=== PATIENT | male | born 1955 | race Caucasian/White ===

== ENCOUNTER → 2023-10-17 08:09 | Outpatient (CLI) | payer MEDICARE, SELFPAY ==
--- NOTE | 2023-10-17 08:12 | DI.US.S_ITS ---
PROCEDURE: US CAROTID DOPPLER BI INDICATIONS: HYPERLIPIDEMIA NICOTINE DEPENDENCE/AAA SCREENING TECHNIQUE: Color and pulse Doppler interrogation was performed of both carotid systems, with image documentation and velocity measurements. COMPARISON: None. FINDINGS: Stenosis calculations are based on SRU (Society of Radiologists in Ultrasound) criteria. Right side: Brachial blood pressure: 133/81 mm Hg. Common carotid artery peak systolic velocity: 99 cm/sec. Internal carotid artery peak systolic velocity: 71 cm/sec. Internal carotid artery end diastolic velocity: 26 cm/sec. External carotid artery peak systolic velocity: 118 cm/sec. ICA/CCA peak systolic ratio: 0.7 . Hector scale imaging description: Mild plaque Percent internal carotid artery stenosis: Less than 50% . Vertebral artery: Flow direction is antegrade. Left side: Brachial blood pressure: 136/82 mm Hg. Common carotid artery peak systolic velocity: 85 cm/sec. Internal carotid artery peak systolic velocity: 110 cm/sec. Internal carotid artery end diastolic velocity: 46 cm/sec. External carotid artery peak systolic velocity: 100 cm/sec. ICA/CCA peak systolic ratio: 1.3 . Hector scale imaging description: Mild to moderate plaque Percent internal carotid artery stenosis: Less than 50% . Vertebral artery: Flow direction is antegrade. IMPRESSION: Less than 50% stenosis within the internal carotid arteries bilaterally. Dictated by: Michelle Ayala M.D. on 10/17/2023 at 11:46 Approved by: Michelle Ayala M.D. on 10/17/2023 at 11:47
--- NOTE | 2023-10-17 08:12 | DI.US.S_ITS ---
PROCEDURE: US ABD AORTA ANEURYSM SCREEN INDICATIONS: HYPERLIPIDEMIA NICOTINE DEPENDENCE/AAA SCREENING TECHNIQUE: Real-time scanning was performed of the aorta and proximal common iliac arteries, with image documentation. COMPARISON: None. FINDINGS: Aorta: Abdominal aorta is normal in caliber throughout its length. Iliacs: Proximal common iliac arteries are normal in caliber. IMPRESSION: Negative for abdominal aortic aneurysm. Approved by: Mai Rodriguez M.D.,Ph.D. on 10/17/2023 at 9:38
== END ==
LOC: US 08:11
PROVIDERS: PCP Student in an Organized Health Care Education/Training Program; Referring Provider Student in an Organized Health Care Education/Training Program; Visit Provider Student in an Organized Health Care Education/Training Program
DX: I65.23 Occlusion and stenosis of bilateral carotid arteries (principal); E78.2 Mixed hyperlipidemia; Z13.6 Encounter for screening for cardiovascular disorders; F17.210 Nicotine dependence, cigarettes, uncomplicated
CPT/HCPCS: 76706; 93880

== ENCOUNTER → 2024-10-24 15:42 | Outpatient (CLI) | payer MEDICARE, SELFPAY ==
--- NOTE | 2024-10-24 15:44 | DI.MRI.S_ITS ---
PROCEDURE: MR HAND RT WO CON INDICATIONS: r/o collateral ligament injury middle finger TECHNIQUE: Noncontrast coronal T1 spin echo and T2 fast spin echo with fat saturation, axial proton density fast spin echo and T2 fast spin echo with fat saturation, sagittal T1 spin echo and STIR through the hand and fingers. COMPARISON: None. FINDINGS: Image quality: Excellent. Bones: Mild degenerative changes of 1st interphalangeal joint with mild subchondral cystic changes in the 1st proximal phalangeal head. Moderate degenerative changes of the 3rd metacarpal phalangeal joint with subchondral cystic changes, and mild marrow edema in the 3rd metacarpal head. Small effusion within the 3rd metacarpal phalangeal joint. Moderate subchondral cystic changes versus erosion in the distal ulna. Mild marrow edema about the capitate and lunate articulation, favoring degenerative as well. Interphalangeal joint(s): The accessory and proper collateral ligaments appear intact. The volar plate demonstrates normal morphology. The extensor central slips appear intact on sagittal images. Metacarpophalangeal joint(s): At the 3rd metacarpal phalangeal joint, the ulnar collateral ligament is irregular and redundant, likely secondary to partial thickness tear. Extensor apparatus: Trace tenosynovitis of the 2nd extensor compartment, at the level of the proximal carpal row. Trace tenosynovitis of the extensor carpi ulnaris within the ulnar groove. Flexor apparatus: The flexor digitorum superficialis and profundus tendons both appear intact. All annular and cruciform pulleys appear intact, without adjacent soft tissue edema. Soft tissues: Full-thickness tear of the central disc of the triangular fibrocartilage. IMPRESSION: 1. Moderate degenerative changes of the 3rd metacarpal phalangeal joint with partial thickness tear of the ulnar collateral ligament. 2. Additional mild degenerative changes of the hand and wrist as described above. 3. Moderate subchondral cystic changes versus erosion in the distal ulna. Recommend clinical correlation for rheumatoid arthritis. 4. Full-thickness tear of the central disc of the triangular fibrocartilage, incompletely evaluated. Dictated by: Lyn Alba M.D. on 10/27/2024 at 9:54 Approved by: Lyn Alba M.D. on 10/27/2024 at 10:03
== END ==
LOC: MRI 15:43
PROVIDERS: PCP Nurse Practitioner Family; Referring Provider Orthopaedic Surgery; Visit Provider Orthopaedic Surgery
DX: S63.591A Other specified sprain of right wrist, initial encounter (principal); M79.641 Pain in right hand
CPT/HCPCS: 73218

== ENCOUNTER 2024-11-27 10:20 | Day surgery (SDC) | payer MEDICARE, SELFPAY ==
--- NOTE | 2024-11-27 | PATH_ITS ---
[facility] Accession Number: [id number] No. of containers..02 Tissue . 01 Material submitted: . PART A: colon - SIGMOID POLYP PART B: rectum - RECTAL POLYP X 2 . 01 Diagnosis: A. SIGMOID COLON POLYP: Colonic mucosa with focal mucosal hyperplasia. Negative for dysplasia or malignancy. . B. RECTAL POLYPS: Tubular adenoma and hyperplastic polyps (two polyps removed). MRV 12/05/2024 1538 Local . 01 Electronically signed: . Rosalio Salmeron MD, PhD, Pathologist NPI- [id number] . 01 Gross description: . A. Received in formalin with two identifiers and sigmoid polyp, is a single williamson-brown soft tissue fragment, 0.8 cm in greatest dimension, submitted entirely in A1. B. Received in formalin with two identifiers and rectal polyps x2, are three williamson soft tissue fragments, 0.4 to 0.5 cm in greatest dimension, submitted entirely in B1. ([id number]) /MRV 12/04/2024 1816 Local . 01 Pathologist provided ICD-10: D12.8 . 01 CPT . 473014, 117203 Specimen Comment: A courtesy copy of this report has been sent to [phone] Performed at: [address] [facility] [address], [place], [place] [id number] MD Vitaly Hernandez MD Phone: [phone]
[2024-11-27 10:54] VITALS: BP 151/89; PULSE 83; RESP 16; TEMP 36.2; O2SAT 100
--- NOTE | 2024-11-27 11:00 | PM.HP.IH.1 ---
History of Present Illness History of Present Illness Date Patient Seen: 11/27/24 Time Patient Seen: 11:00 Chief complaint: Dx Colonoscopy w/poss bx Narrative: Richi is a 69-year-old man had a positive fecal immunochemical test recently. He has never had a colonoscopy before. No family history of colon cancer. [facility] Social History (Updated 10/17/24 @ 14:45 by Doretha Hernandez MA) marital status: household members: spouse Meds Home Medications and Allergies Home Medications ?Medication ?Instructions ?Recorded ?Confirmed ?Type rosuvastatin 20 mg tablet 20 mg PO DAILY 10/17/24 11/27/24 History sodium,potassium,mag sulfates 17.5 See Rx Instructions PO .COMPLEX 10/30/24 Rx gram-3.13 gram-1.6 gram oral soln #354 mL (Suprep Bowel Prep Kit) Allergies Allergy/AdvReac Type Severity Reaction Status Date / Time No Known Drug Allergies Allergy Verified 11/27/24 10:50 Exam Const General: healthy appearing Assessment & Plan Assessment and plan (1) Positive FIT (fecal immunochemical test): Status: Acute Plan Colonoscopy Time-Based Coding :: [TOTAL MINUTES] spent with patient and on the chart (including review of chart, obtaining history, exam, reviewing outside data, placing orders, documenting exam and treatment plan, and counseling patient) on [DATE]. 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
[2024-11-27] MEDS: LACTATED RINGERS 1,000 ML 42 ML IV (11:08)
--- NOTE | 2024-11-27 12:01 | PM.HP.IH.1 ---
History of Present Illness History of Present Illness Chief complaint: Dx Colonoscopy w/poss bx Narrative: Richi is a 69-year-old man had a positive fecal immunochemical test recently. He has never had a colonoscopy before. No family history of colon cancer. [facility], [facility] Social History (Updated 10/17/24 @ 14:45 by Doretha Hernandez MA) marital status: household members: spouse Meds Home Medications and Allergies Home Medications ?Medication ?Instructions ?Recorded ?Confirmed ?Type rosuvastatin 20 mg tablet 20 mg PO DAILY 10/17/24 11/27/24 History sodium,potassium,mag sulfates 17.5 See Rx Instructions PO .COMPLEX 10/30/24 Rx gram-3.13 gram-1.6 gram oral soln #354 mL (Suprep Bowel Prep Kit) Allergies Allergy/AdvReac Type Severity Reaction Status Date / Time No Known Drug Allergies Allergy Verified 11/27/24 10:50 Exam Vital Signs (past 8 hours): - 11/27/24 10:54 Temperature 97.2 F L Pulse Rate 83 Respiratory Rate 16 Blood Pressure 151/89 H Pulse Oximetry 100 Oxygen Delivery Method Room Air Oxygen Delivery Method Room Air Assessment & Plan Time-Based Coding :: [TOTAL MINUTES] spent with patient and on the chart (including review of chart, obtaining history, exam, reviewing outside data, placing orders, documenting exam and treatment plan, and counseling patient) on [DATE]. 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
--- NOTE | 2024-11-27 12:01 | PM.OP.COLON ---
Operative Date/Time/Diagnoses Date of procedure: 11/27/24 Time of procedure: 12:02 Pre-op diagnosis: Positive fit test Post-op diagnosis: same Procedure & Clinicians Study performed: Colonoscopy Same procedure(s) as scheduled: Yes Surgeon: Brad Lai Anesthesia Type: MAC +/- Procedure Notes Procedure in detail: Surgeon: Brad Lai MD Anesthesia: Cehrelle Rajput CRNA Procedure: The patient was brought to the endoscopy suite, placed in left lateral decubitus position. The patient was connected to monitoring devices. A time-out was performed. Sedation was administered. Once the patient was adequately sedated, a digital rectal exam was performed and was normal. The scope was then inserted and advanced to the cecum where the appendiceal orifice was identified and photographed. The scope was then slowly withdrawn over greater than 6 minutes. The mucosa was thoroughly inspected. There was a 5 mm polyp in the sigmoid colon removed with a cold snare. There were two 5 mm polyps in the rectum removed with a cold snare and sent together. The scope was retroflexed in the rectum. No other abnormalities were found. The scope was straightened and removed. The patient was awakened and brought to recovery. Scope withdrawal time: 9 minutes Sedation time: 14 minutes EBL: 5 mL Findings: One small polyp in the sigmoid colon and two small polyps in the rectum Post-procedure Disposition: PACU
[2024-11-27 12:05] VITALS: BP 130/75; PULSE 73; RESP 16; TEMP 36.2; O2SAT 95
[2024-11-27 12:10] VITALS: BP 124/76; PULSE 64; RESP 16; O2SAT 97
[2024-11-27 12:15] VITALS: BP 116/70; PULSE 64; RESP 16; TEMP 36.2; O2SAT 96
[2024-11-27 12:20] VITALS: BP 122/72; PULSE 66; RESP 20; O2SAT 96
== END 2024-11-27 12:25 | disposition home or self-care (01) ==
PROVIDERS: PCP Nurse Practitioner Family; Referring Provider Surgery; Visit Provider Surgery
PROC: 0DJD8ZZ Inspection of Lower Intestinal Tract, Via Natural or Artificial Opening Endoscopic (ICD-10-PCS; CPT 45378; principal; 2024-11-27 11:30)
DX: Z12.11 Encounter for screening for malignant neoplasm of colon (principal); R19.5 Other fecal abnormalities; D12.8 Benign neoplasm of rectum
CPT/HCPCS: 45385; J2704